=== PATIENT | male | born 1960 | race African-American/Black ===

== ENCOUNTER 2017-02-10 13:33 | Emergency (ER) | payer SELFPAY ==
[~2017-02-10] VITALS: Ht 188 cm; Wt 95.0 kg
[~2017-02-10 13:33] MED LIST: CIPR500T4 PO; CLON-352 PO; LANTUSP SQ; LISI-360 PO; NOVOLOGP2 SQ; ULTR50TA PO; ZOFR8TAB4 SL
[2017-02-10 13:39] VITALS: BP 224/122; PULSE 94; RESP 16; TEMP 98.4; O2SAT 98
--- NOTE | 2017-02-10 14:06 | PD ---
HPI Chief Complaint: Abdominal Pain Time Seen by Provider: 13:50 Travel History International Travel<30 days: No Contact w/Intl Traveler<30days: No Traveled to known affect area: No History of Present Illness HPI This is a 56-year-old male who presents to the emergency department with swelling in his right groin, intermittent, moderate severity been going on for several months, increasing in size. He denies any abdominal pain or vomiting and has had no problems with his bowels. [facility] Past Medical History Diabetes: Yes (type 2 ) Patient Takes Glucophage: No Hypertension: Yes Tetanus Vaccination: > 5 Years Influenza Vaccination: No Social History Alcohol Use: No Tobacco Use: No Substance Use: No Allergies-Medications (Allergen,Severity, Reaction): Coded Allergies: No Known Allergies (Unverified Adverse Reaction, Unknown, 02/10/17) Reported Meds & Prescriptions Reported Meds & Active Scripts Active No Active Prescriptions or Reported Medications Review of Systems Except as stated in HPI: all other systems reviewed are Neg Physical Exam Narrative GENERAL:Well appearing, no acute distress SKIN: Focused skin assessment warm and dry. HEAD: Atraumatic. Normocephalic. EYES: Pupils equal and round. No injection or drainage. ENT: Moist mucous membranes NECK: Trachea midline. CARDIOVASCULAR: Regular rate and rhythm. No murmur appreciated. RESPIRATORY: Clear to auscultation. Breath sounds equal bilaterally. GASTROINTESTINAL: Abdomen soft, non-tender, nondistended. : Large right inguinal hernia easily reducible MUSCULOSKELETAL: No obvious deformities. NEUROLOGICAL: Awake and alert. No obvious cranial nerve deficits. Moving all extremities. PSYCHIATRIC: Appropriate mood and affect; insight and judgment normal. Data Data Last Documented VS Vital Signs Date Time Temp Pulse Resp B/P (MAP) Pulse Ox O2 Delivery O2 Flow Rate FiO2 02/10/17 13:39 98.4 94 16 224/122 156) 98 MDM Medical Decision Making Medical Screen Exam Complete: Yes Emergency Medical Condition: Yes Differential Diagnosis Inguinal hernia, strangulated hernia, incarcerated hernia Narrative Course This is a 56-year-old male who presents to the emergency department with a lump in his groin. On exam he has an inguinal hernia which is easily reducible. He has no evidence of obstruction. I think he can pursue surgical repair as an outpatient. He does have marked hypertension. He has a history of high blood pressure but doesn't take any medications for it. I referred him to the [facility]. Patient will be discharged home. Diagnosis Primary Impression: Right inguinal hernia Referrals: Julius Santos MD Patient Instructions: General Instructions Additional Instructions: If you develop severe or worsening abdominal pain, fever>100.4, persistent vomiting or inability to eat or drink return to the emergency department immediately. Med/Other Pt SpecificInfo: No Change to Meds Scripts No Active Prescriptions or Reported Meds Disposition: 01 DISCHARGE HOME Condition: Stable Peyton Roblero MD Feb 10, 2017 14:06
[2017-02-10 14:34] VITALS: BP 184/126
== END 2017-02-10 14:36 | disposition home or self-care (01) ==
LOC: PHED 13:33
DX: K40.90 Unilateral inguinal hernia, without obstruction or gangrene, not specified as recurrent (principal)
CPT/HCPCS: 99282

== ENCOUNTER 2017-08-06 20:31 | Inpatient (IN) | payer SELFPAY ==
[~2017-08-06] VITALS: Ht 190.5 cm; Wt 97.8 kg
[2017-08-06 20:35] VITALS: BP 129/83; PULSE 95; RESP 18; TEMP 98.2; O2SAT 98
--- NOTE | 2017-08-06 20:49 | PD ---
HPI Chief Complaint: GI Complaint Time Seen by Provider: 20:47 Travel History International Travel<30 days: No Contact w/Intl Traveler<30days: No Traveled to known affect area: No History of Present Illness HPI Patient states that over the past few days he had had been having nausea vomiting and some diarrhea. Those symptoms seem to have improved over the last 3 days however today the patient started to experience a normal bowel movement this morning but by the afternoon the patient started having multiple bloody diarrhea movements associated with crampy abdominal pain, and nausea but without vomiting. Patient denies any alleviating or aggravating factors. Patient denies any associated factors such as fever, rash, chest pain, back pain , flank pain, sore throat/cough/runny nose. The patient states that today throughout the day that it started off with normal stool and then mixed with abnormal bloody stool and eventually just became bloody stool. Visiting from [place] with no local doctor No known drug allergy Past medical history significant for corrective lens use, hypertension, diabetes , left knee orthopedic surgery, on a daily baby aspirin per patient. PFSH Past Medical History Hx Anticoagulant Therapy: Yes (BABY ASA DAILY) Diabetes: Yes (type 2 ) Hypertension: Yes Social History Alcohol Use: No Tobacco Use: No Substance Use: No Allergies-Medications (Allergen,Severity, Reaction): Coded Allergies: No Known Allergies (Verified Adverse Reaction, Unknown, 08/06/17) Reported Meds & Prescriptions Reported Meds & Active Scripts Active No Active Prescriptions or Reported Medications Review of Systems General / Constitutional: No: Fever Eyes: No: Visual changes HENT: No: Headaches Cardiovascular: No: Chest Pain or Discomfort Respiratory: No: Shortness of Breath Gastrointestinal: Positive: Nausea, Vomiting, Hematochezia Genitourinary: No: Dysuria Musculoskeletal: No: Pain Skin: No Rash Neurologic: No: Weakness Psychiatric: No: Depression Endocrine: No: Polydipsia Hematologic/Lymphatic: No: Easy Bruising Physical Exam Narrative GENERAL: SKIN: Warm and dry. HEAD: Atraumatic. Normocephalic. EYES: Pupils equal and round. No scleral icterus. No injection or drainage. ENT: No nasal bleeding or discharge. Mucous membranes pink and moist. NECK: Trachea midline. No JVD. CARDIOVASCULAR: Regular rate and rhythm. RESPIRATORY: No accessory muscle use. Clear to auscultation. Breath sounds equal bilaterally. GASTROINTESTINAL: Abdomen soft, non-tender, nondistended. Patient has reducible large right inguinal hernia. Patient is noted to have bright red blood per rectum. Without any evidence of external hemorrhoids or anal fissure MUSCULOSKELETAL: Extremities without clubbing, cyanosis, or edema. No obvious deformities. NEUROLOGICAL: Awake and alert. No obvious cranial nerve deficits. Motor grossly within normal limits. Five out of 5 muscle strength in the arms and legs. Normal speech. PSYCHIATRIC: Appropriate mood and affect; insight and judgment normal. Data Data Last Documented VS Vital Signs Date Time Temp Pulse Resp B/P (MAP) Pulse Ox O2 Delivery O2 Flow Rate FiO2 08/06/17 21:05 18 08/06/17 20:35 98.2 95 129/83 (98) 98 Orders Orders Complete Blood Count With Diff (08/06/17 21:) Comprehensive Metabolic Panel (08/06/17 21:00) Lipase (08/06/17 21:00) Prothrombin Time / Inr (Pt) (08/06/17:) Act Partial Throm Time (Ptt) (08/06/17:) Urinalysis - C+S If Indicated (08/06/17 21:00) Iv Access Insert/Monitor (08/06/17 21:00) Ecg Monitoring (08/06/17 21:00) Oximetry (08/06/17 21:00) NPO (08/06/17 21:00) Sodium Chlor 0.9% 1000 Ml Inj (Ns 1000 M (08/06/17 21:00) Sodium Chloride 0.9% Flush (Ns Flush) (08/06/17 21:00) Type And Screen (08/06/17 21:00) Enteric Path (Stool) (08/06/17 21:19) C Diff Toxin Pcr (08/06/17 21:19) Giardia Antigen (Stool) (08/06/17 21:19) Stool Ova And Parasite Screen (08/06/17 21:19) Stool Wbc (Leukocytes) (08/06/17 21:19) Promethazine Inj (Phenergan Inj) (08/06/17 21:30) Ct Abd/Pel W/O Iv Contrast (08/06/17 21:00) Labs Laboratory Tests Test 08/06/17 21:25 White Blood Count 6.4 TH/MM3 Red Blood Count 4.25 MIL/MM3 Hemoglobin 11.9 GM/DL Hematocrit 36.0 % Mean Corpuscular Volume 84.7 FL Mean Corpuscular Hemoglobin 28.0 PG Mean Corpuscular Hemoglobin Concent 33.1 % Red Cell Distribution Width 13.7 % Platelet Count 315 TH/MM3 Mean Platelet Volume 7.2 FL Neutrophils (%) (Auto) 70.8 % Lymphocytes (%) (Auto) 18.9 % Monocytes (%) (Auto) 5.7 % Eosinophils (%) (Auto) 2.1 % Basophils (%) (Auto) 2.5 % Neutrophils # (Auto) 4.5 TH/MM3 Lymphocytes # (Auto) 1.2 TH/MM3 Monocytes # (Auto) 0.4 TH/MM3 Eosinophils # (Auto) 0.1 TH/MM3 Basophils # (Auto) 0.2 TH/MM3 CBC Comment DIFF FINAL Differential Comment Prothrombin Time 11.2 SEC Prothromb Time International Ratio 1.1 RATIO Activated Partial Thromboplast Time 25.5 SEC Blood Urea Nitrogen 24 MG/DL Creatinine 2.10 MG/DL Random Glucose 173 MG/DL Total Protein 7.1 GM/DL Albumin 2.4 GM/DL Calcium Level 8.7 MG/DL Alkaline Phosphatase 83 U/L Aspartate Amino Transf (AST/SGOT) 18 U/L Alanine Aminotransferase (ALT/SGPT) 20 U/L Total Bilirubin 0.3 MG/DL Sodium Level 142 MEQ/L Potassium Level 4.0 MEQ/L Chloride Level 106 MEQ/L Carbon Dioxide Level 30.1 MEQ/L Anion Gap 6 MEQ/L Estimat Glomerular Filtration Rate 40 ML/MIN Lipase 96 U/L MDM Medical Decision Making Medical Screen Exam Complete: Yes Emergency Medical Condition: Yes Medical Record Reviewed: Yes Differential Diagnosis Enterocolitis versus enteritis versus diverticulitis versus colitis versus CA Narrative Course CBC shows no leukocytosis, no left shift, normal platelet count, hemoglobin 11.9 and hematocrit of 36 Coagulation profile is within normal limits Chemistry shows renal insufficiency of unknown etiology or chronicity with a creatinine of 2.1 and a BUN of 24 and a GFR of 40. Electrolytes are all within normal limits with the exception of glucose of 173. Normal liver functions and normal pancreatic functions. CT abdomen and pelvis read by radiologist as rectal mass poorly evaluated due to lack of oral and IV contrast. No dilation to suggest obstruction. Colonic diverticulosis, tiny low-density lesions involving the kidneys are poorly characterized and may simply relate to cysts. Largest right inguinal hernia containing loops of small bowel. Diagnosis Primary Impression: Gross GI bleed Additional Impression: Possible rectal mass Admitting Information Admitting Physician Requests: Observation Scripts No Active Prescriptions or Reported Meds Disposition: 01 DISCHARGE HOME Condition: Stable Nitin Samuel MD August 06, 2017 20:49
[2017-08-06] MEDS ORDERED: SODIUM CHLOR 0.9% 1000 ML INJ 1,000 ML IV SCH (21:00)
[2017-08-06] MEDS ORDERED: SODIUM CHLORIDE 0.9% FLUSH 10 ML FLUSH IV FLUSH PRN ×2 (21:00→23:15)
[2017-08-06 21:05] VITALS: BP 136/86; PULSE 94; RESP 18; O2SAT 96
[2017-08-06] MEDS ORDERED: PROMETHAZINE INJ 25 MG/ML VIAL IM ONE (21:30)
[2017-08-06 21:35] LABS: AUTOMATED NEUTROPHIL # 4.5 TH/MM3 (1.8-7.7); BASOPHIL # 0.2 TH/MM3 (0-0.2); BASOPHIL % 2.5 % (0.0-2.0); EOSINOPHIL # 0.1 TH/MM3 (0-0.4); EOSINOPHIL % 2.1 % (0.0-4.0); HEMOGLOBIN 11.9 GM/DL (13.0-17.0); LYMPH % 18.9 % (9.0-44.0); LYMPHOCYTE # 1.2 TH/MM3 (1.0-4.8); MEAN CELL VOLUME 84.7 FL (80.0-100.0); MEAN CORPUSCULAR HGB CONC 33.1 % (32.0-36.0); MEAN PLATELET VOLUME 7.2 FL (7.0-11.0); MONO % 5.7 % (0.0-8.0); MONOCYTE # 0.4 TH/MM3 (0-0.9); NEUT % 70.8 % (16.0-70.0); PLATELET COUNT 315 TH/MM3 (150-450); RED BLOOD COUNT 4.25 MIL/MM3 (4.50-5.90); RED CELL DISTRIBUTION WIDTH 13.7 % (11.6-17.2); WHITE BLOOD COUNT 6.4 TH/MM3 (4.0-11.0)
[2017-08-06 21:45] LABS: CHLORIDE 106 MEQ/L (98-107); SODIUM (NA) 142 MEQ/L (136-145)
[2017-08-06 21:48] LABS: CALCIUM 8.7 MG/DL (8.5-10.1)
[2017-08-06 21:49] LABS: ALBUMIN 2.4 GM/DL (3.4-5.0); BICARBONATE 30.1 MEQ/L (21.0-32.0); BLOOD UREA NITROGEN 24 MG/DL (7-18); GLUCOSE,RANDOM 173 MG/DL (74-106)
[2017-08-06 21:51] LABS: ALT (GPT) 20 U/L (12-78); AST (GOT) 18 U/L (15-37)
[2017-08-06 21:52] LABS: GLOMERULAR FILTRATION RATE 40 ML/MIN (>89)
[2017-08-06 21:53] LABS: TOTAL BILIRUBIN ADULT 0.3 MG/DL (0.2-1.0); TOTAL PROTEIN 7.1 GM/DL (6.4-8.2)
[2017-08-06 21:54] LABS: ALKALINE PHOSPHATASE 83 U/L (45-117)
[2017-08-06 22:05] VITALS: BP 116/74; PULSE 93; RESP 18; O2SAT 95
[2017-08-06 22:15] LABS: INTERNATIONAL NORMALIZED RATIO 1.1 RATIO; PROTHROMBIN TIME - PATIENT 11.2 SEC (9.8-11.6)
--- NOTE | 2017-08-06 22:58 | RADRPT ---
EXAM DATE/TIME: 08/06/2017 22:30 [place] COMPARISON: No previous studies available for comparison. INDICATIONS : Abdomen pain with nausea, vomiting and rectal bleeding. ORAL CONTRAST: No oral contrast ingested. RADIATION DOSE: 16.62 CTDIvol (mGy) MEDICAL HISTORY : Hypertension. Diabetes mellitus type 2. SURGICAL HISTORY : None. ENCOUNTER: Initial ACUITY: 1 week PAIN SCALE: 5/10 LOCATION: Bilateral abdomen TECHNIQUE: Volumetric scanning of the abdomen and pelvis was performed. Using automated exposure control and ad justment of the mA and/or kV according to patient size, radiation dose was kept as low as reasonably achievable to obtain optimal diagnostic quality images. DICOM format image data is available electro nically for review and comparison. FINDINGS: LOWER LUNGS: The visualized lower lungs are clear. LIVER: Homogeneous density without lesion. Focal fatty infiltration adjacent to the falciform ligament. Ther e is no dilation of the biliary tree. No calcified gallstones. SPLEEN: Normal size without lesion. PANCREAS: Within normal limits. KIDNEYS: Normal in size and shape. Tiny low density cortical lesions bilaterally. There is no mass, stone, or hydronephrosis. ADRENAL GLANDS: Within normal limits. VASCULAR: There is no aortic aneurysm. BOWEL/MESENTERY: Is suspected rectal mass. This is poorly evaluated without oral and IV contrast. The generators wall thickening of the rectum. No dilatation of the more proximal bowel to suggest an obstructing componen t. Scattered colonic diverticuli. ABDOMINAL WALL: Within normal limits. RETROPERITONEUM: There is no lymphadenopathy. BLADDER: No wall thickening or mass. REPRODUCTIVE: Within normal limits. INGUINAL: There is a right angle hernia that contains multiple loops of small bowel. No stranding to suggest an inflammatory process. MUSCULOSKELETAL: A. scoliot and degenerative spine. CONCLUSION: 1. Rectal mass poorly evaluated due to the lack of oral and IV contrast. No dilatation to suggest obs truction. 2. Colonic diverticulosis. 3. Tiny low density lesions involving the kidneys which are poorly characterized. These may simply re late to cysts. 4. Large right inguinal hernia containing loops of small bowel. Lito Fierro Jr., MD on August 06, 2017 at 22:51 Board Certified Radiologist. This report was verified electronically.
[2017-08-06 23:07] VITALS: BP 134/85; PULSE 92; RESP 18; O2SAT 97
[2017-08-06] MEDS ORDERED: METOCLOPRAMIDE HCL 10 MG/2 ML VIAL IV PUSH PRN (23:15)
[2017-08-06] MEDS ORDERED: BISACODYL 10 MG SUPP RECTAL PRN (23:15)
[2017-08-06] MEDS ORDERED: MAGNESIUM HYDROXIDE SUSP 30 ML CUP PO PRN (23:15)
[2017-08-06] MEDS ORDERED: ACETAMINOPHEN 325 MG TAB PO PRN (23:15)
[2017-08-06] MEDS ORDERED: ACETAMINOPHEN/HYDROcodone 325 MG/5 MG TAB PO PRN (23:15)
[2017-08-06] MEDS ORDERED: LACTULOSE SYRUP 20 GM/30 ML CUP PO PRN (23:15)
[2017-08-06] MEDS ORDERED: MORPHINE SULFATE 4 MG/ML INJ IV PUSH PRN (23:15)
[2017-08-06] MEDS ORDERED: SENNOSIDES 8.6 MG TAB PO PRN (23:15)
[2017-08-07] VITALS (13 sets, daily range): BP systolic 100–181; BP diastolic 71–97; PULSE 88–100; RESP 15–20; TEMP 97–98; O2SAT 95–98
[2017-08-07] MEDS: SODIUM CHLOR 0.9% 1000 ML INJ 1,000 ML IV SCH ×3 (00:25→20:38)
[2017-08-07 06:29] LABS: AUTOMATED NEUTROPHIL # 4.8 TH/MM3 (1.8-7.7); BASOPHIL # 0.2 TH/MM3 (0-0.2); EOSINOPHIL % 0.2 % (0.0-4.0); HEMATOCRIT 30.4 % (39.0-51.0); LYMPH % 17.1 % (9.0-44.0); LYMPHOCYTE # 1.1 TH/MM3 (1.0-4.8); MEAN CELL VOLUME 85.2 FL (80.0-100.0); MEAN CORPUSCULAR HEMOGLOBIN 26.7 PG (27.0-34.0); MEAN CORPUSCULAR HGB CONC 31.4 % (32.0-36.0); MEAN PLATELET VOLUME 6.7 FL (7.0-11.0); MONO % 4.8 % (0.0-8.0); MONOCYTE # 0.3 TH/MM3 (0-0.9); NEUT % 74.9 % (16.0-70.0); PLATELET COUNT 266 TH/MM3 (150-450); RED BLOOD COUNT 3.58 MIL/MM3 (4.50-5.90); RED CELL DISTRIBUTION WIDTH 13.5 % (11.6-17.2); WHITE BLOOD COUNT 6.4 TH/MM3 (4.0-11.0)
[2017-08-07 06:32] LABS: HEMOGLOBIN 9.6 GM/DL (13.0-17.0)
[2017-08-07 06:39] LABS: CHLORIDE 110 MEQ/L (98-107); SODIUM (NA) 144 MEQ/L (136-145)
[2017-08-07 06:53] LABS: ALBUMIN 2.1 GM/DL (3.4-5.0); ALKALINE PHOSPHATASE 70 U/L (45-117); ALT (GPT) 15 U/L (12-78); AST (GOT) 11 U/L (15-37); BICARBONATE 26.9 MEQ/L (21.0-32.0); BLOOD UREA NITROGEN 28 MG/DL (7-18); CALCIUM 7.8 MG/DL (8.5-10.1); GLOMERULAR FILTRATION RATE 44 ML/MIN (>89); GLUCOSE,RANDOM 161 MG/DL (74-106); TOTAL BILIRUBIN ADULT 0.3 MG/DL (0.2-1.0)
[2017-08-07] MEDS ORDERED: PROCHLORPERAZINE INJ 10 MG/2 ML VIAL IV PUSH PRN (08:00)
[2017-08-07] MEDS ORDERED: GLUCAGON 1 MG/ML VIAL OTHER PRN (08:15)
[2017-08-07] MEDS ORDERED: DEXTROSE 50% IN WATER 50 ML VIAL(D50) IV PUSH PRN (08:15)
--- NOTE | 2017-08-07 08:28 | HHI.HP ---
[facility] Service [facility] Primary Care Physician Unknown Admission Diagnosis GI BLEED, POSSIBLE RECTAL MASS Diagnoses: (1) Intractable nausea and vomiting Diagnosis: Principal (2) Abdominal pain Diagnosis: Principal (3) Lower GI bleed Diagnosis: Principal (4) Acute blood loss anemia Diagnosis: Principal (5) Rectal mass Diagnosis: Principal (6) Acute renal failure Diagnosis: Principal (7) Dehydration Diagnosis: Principal Chief Complaint: Rectal bleeding Travel History International Travel<30 Days: No Contact w/Intl Traveler <30 Da: No Traveled to Known Affected Are: No History of Present Illness 57-year-old male with known history of hypertension, diabetes who presented the hospital because of bloody stool. Patient indicates over the last 2 weeks he has had intractable nausea, vomiting not able to eat or drink much. He states that yesterday when he had a bowel movement was bloody diarrhea, he states he never had this before so he came to emergency department because of that symptom. Patient did have workup which did indicate significant dehydration, acute renal failure, acute blood loss anemia from reviewing previous records. Patient is still with intractable nausea vomiting which he has been given IV medication for control. Patient states that he has been experiencing lower abdominal pain without any radiation. CT scan was performed which did indicate some small bowel loops in a large inguinal hernia. As well as rectal mass that was poorly evaluated because of lack of contrast. Currently the patient is lying in bed with mild pain. He is still having nausea and vomiting. Upon reviewing medical records patient has lost 5 g hemoglobin since 2013. Patient be admitted with GI consultation. Review of Systems Constitutional: COMPLAINS OF: Change in appetite Gastrointestinal: COMPLAINS OF: Abdominal pain, Bloody stools, Diarrhea, Nausea , Vomiting Except as stated in HPI: all other systems reviewed are Neg Past Family Social History Past Medical History Hypertension Diabetes Past Surgical History Left knee surgery Reported Medications Patient does not recall all of his medications Lantus 20 units daily Blood pressure medication Requested nursing staff to obtain accurate medication list from [facility] Allergies: Coded Allergies: No Known Allergies (Verified Adverse Reaction, Unknown, 08/06/17) Family History Family history was reviewed and significant for hypertension, diabetes Social History Patient denies any tobacco, alcohol or illicit drug Physical Exam Vital Signs Vital Signs Date Time Temp Pulse Resp B/P (MAP) Pulse Ox O2 Delivery O2 Flow Rate FiO2 08/07/17 07:40 08/07/17 07:06 100 16 149/86 (107) 97 Room Air 08/07/17 06:00 96 16 132/74 (93) 96 Room Air 08/07/17 05:00 100 16 151/88 (109) 97 Room Air 08/07/17 04:00 94 16 133/90 (104) 97 Room Air 08/07/17 03:00 94 16 154/94 (114) 96 Room Air 08/07/17 02:00 92 16 127/85 (99) 97 Room Air 08/07/17 01:00 90 16 148/90 (109) 95 Room Air 08/07/17 00:10 92 16 100/71 (81) 96 Room Air 08/06/17 23:07 92 18 134/85 (101) 97 Room Air 08/06/17 22:05 93 18 116/74 (88) 95 Room Air 08/06/17 21:05 18 08/06/17 21:05 18 96 Room Air 08/06/17 21:05 94 18 136/86 (103) 96 Room Air 08/06/17 20:35 98.2 95 18 129/83 (98) 98 Physical Exam GENERAL: Well-developed, well-nourished, in no acute distress. alert and orientated HEENT: Head is normocephalic without any lesions or masses noted. Facial features are symmetric. Eyes: Pupils equal round reactive to light. Extraocular muscles are intact. Conjunctivae were clear. Oropharyngeal: Pharynx without any erythema edema. Tongue is midline without deviation. Buccal mucosa is moist without any masses or lesions NECK: Supple without any masses. Trachea midline no deviation. No JVD, no bruits are appreciated CARDIAC: Regular rhythm, regular rate. S1/S2 are heard. No murmurs gallops or rubs. LUNGS: Clear to auscultation bilaterally. No wheeze, rhonchi or rales. No use of accessory muscles on inspiration or expiration. ABDOMEN: Soft, nontender. Nondistended. Bowel sounds heard in all 4 quadrants. No organomegaly or masses. Negative rebound, negative guarding EXTREMITIES: No edema, pulses are equal bilaterally. No cyanosis or clubbing NEUROLOGY: Mood and affect appear appropriate. Cranial nerves II through XII grossly intact. Muscle strength 5/5 in upper and lower extremities bilaterally. Deep tendon reflexes are 2+ in upper and lower extremities bilaterally. Laboratory Laboratory Tests Test 08/06/17 21:25 08/07/17 06:15 White Blood Count 6.4 6.4 Red Blood Count 4.25 3.58 Hemoglobin 11.9 9.6 Hematocrit 36.0 30.4 Mean Corpuscular Volume 84.7 85.2 Mean Corpuscular Hemoglobin 28.0 26.7 Mean Corpuscular Hemoglobin Concent 33.1 31.4 Red Cell Distribution Width 13.7 13.5 Platelet Count 315 266 Mean Platelet Volume 7.2 6.7 Neutrophils (%) (Auto) 70.8 74.9 Lymphocytes (%) (Auto) 18.9 17.1 Monocytes (%) (Auto) 5.7 4.8 Eosinophils (%) (Auto) 2.1 0.2 Basophils (%) (Auto) 2.5 3.0 Neutrophils # (Auto) 4.5 4.8 Lymphocytes # (Auto) 1.2 1.1 Monocytes # (Auto) 0.4 0.3 Eosinophils # (Auto) 0.1 0.0 Basophils # (Auto) 0.2 0.2 CBC Comment DIFF FINAL DIFF FINAL Differential Comment Prothrombin Time 11.2 Prothromb Time International Ratio 1.1 Activated Partial Thromboplast Time 25.5 Stool C. difficile Toxin (PCR) NEGATIVE Stl C. difficile Toxin Epiderm 027 PRESUMPTIVE NEGATIVE Blood Urea Nitrogen 24 28 Creatinine 2.10 1.90 Random Glucose 173 161 Total Protein 7.1 6.0 Albumin 2.4 2.1 Calcium Level 8.7 7.8 Alkaline Phosphatase 83 70 Aspartate Amino Transf (AST/SGOT) 18 11 Alanine Aminotransferase (ALT/SGPT) 20 15 Total Bilirubin 0.3 0.3 Sodium Level 142 144 Potassium Level 4.0 3.9 Chloride Level 106 110 Carbon Dioxide Level 30.1 26.9 Anion Gap 6 7 Estimat Glomerular Filtration Rate 40 44 Lipase 96 Date/Time Source Procedure Growth Status 08/06/17 21:25 Stool Stool Cryptosporidium Exam Pending Received 08/06/17 21:25 Stool Stool Stool Pus (KATIA) Pending Received 08/06/17 21:25 Stool Stool Giardia Antigen (KATIA) Pending Received Result Diagram: 08/07/17 0615 08/07/17 0615 Imaging Last Impressions Abdomen/Pelvis CT 08/06/17 2100 Signed Impressions: Service Date/Time: Sunday, August 06, 2017 22:30 - CONCLUSION: 1. Rectal mass poorly evaluated due to the lack of oral and IV contrast. No dilatation to suggest obstruction. 2. Colonic diverticulosis. 3. Tiny low density lesions involving the kidneys which are poorly characterized. These may simply relate to cysts. 4. Large right inguinal hernia containing loops of small bowel. MD Parker Damico Jr. VTE Risk Assessment Capjim VTE Risk Assessment: Mod/High Risk (score >= 2) VTE Pharm Contraindication: Active bleeding Caprini Risk Assessment Model Point Value = 1 Point Value = 2 Point Value = 3 Point Value = 5 Age 41-60 Minor surgery BMI > 25 kg/m2 Swollen legs Varicose veins or History of unexplained or recurrent spontaneous Oral contraceptives or hormone replacement Sepsis (< 1 month) Serious lung disease, including pneumonia (< 1 month) Abnormal pulmonary function Acute myocardial infarction Congestive heart failure (< 1 month) History of inflammatory bowel disease Medical patient at bed rest Age 61-74 Arthroscopic surgery Major open surgery (> 45 min) Laparoscopic surgery (> 45 min) Malignancy Confined to bed (> 72 hours) Immobilizing plaster cast Central venous access Age >= 75 History of VTE Family history of VTE Factor V Leiden Prothrombin 25176M Lupus anticoagulant Anticardiolipin antibodies Elevated serum homocysteine Heparin-induced thrombocytopenia Other congenital or acquired thrombophilia Stroke (< 1 month) Elective arthroplasty Hip, pelvis, or leg fracture Acute spinal cord injury (< 1 month) Prophylaxis Regimen Total Risk Factor Score Risk Level Prophylaxis Regimen 0-1 Low Early ambulation 2 Moderate Order ONE of the following: *Sequential Compression Device (SCD) *Heparin 5000 units SQ BID 3-4 Higher Order ONE of the following medications: *Heparin 5000 units SQ TID *Enoxaparin/Lovenox 40 mg SQ daily (WT < 150 kg, CrCl > 30 mL/min) *Enoxaparin/Lovenox 30 mg SQ daily (WT < 150 kg, CrCl > 10-29 mL/min) *Enoxaparin/Lovenox 30 mg SQ BID (WT < 150 kg, CrCl > 30 mL/min) AND/OR *Sequential Compression Device (SCD) 5 or more Highest Order ONE of the following medications: *Heparin 5000 units SQ TID (Preferred with Epidurals) *Enoxaparin/Lovenox 40 mg SQ daily (WT < 150 kg, CrCl > 30 mL/min) *Enoxaparin/Lovenox 30 mg SQ daily (WT < 150 kg, CrCl > 10-29 mL/min) *Enoxaparin/Lovenox 30 mg SQ BID (WT < 150 kg, CrCl > 30 mL/min) AND *Sequential Compression Device (SCD) Assessment and Plan Assessment and Plan Lower GI bleed with bright red blood per rectum, rectal mass seen on CT, acute blood loss anemia -CT scan does show rectal mass that is poorly visualized due to lack of contrast -Upon review of records it appears patient has lost approximately 5 g of hemoglobin since 2013, continue to monitor hemoglobin hematocrit, transfuse if hemoglobin below 8.0 -Start Protonix 40 mg IV daily -GI consulted for recommendations, might need emergent colonoscopy if continued bleeding, will definitely need colonoscopy for evaluation of rectal mass Nausea, vomiting, diarrhea -Continue IV fluids -Continue antiemetics -Clear liquid diet, advance per GI recommendations -Stool for C. difficile was negative -Awaiting further stool studies Acute renal failure with dehydration -Secondary to above -Continue IV fluids -Monitor renal function Diabetes -Accu-Cheks with sliding scale insulin -Start diabetic diet when patient is able to eat Hypertension -Awaiting medication reconciliation from patient's pharmacy -Clonidine as needed DVT prevention -Sequential compression devices, avoid chemical prophylaxis secondary to active GI bleed Physician Certification 2 Midnight Certification Type: Admission for Inpatient Services Order for Inpatient Services The services are ordered in accordance with Medicare regulations or non- Medicare payer requirements, as applicable. In the case of services not specified as inpatient-only, they are appropriately provided as inpatient services in accordance with the 2-midnight benchmark. Estimated LOS (days): 3 days is the estimated time the patient will need to remain in the hospital, assuming treatment plan goals are met and no additional complications. Post-Hospital Plan: Not yet determined Elliot Ortez August 07, 2017 08:28
[2017-08-07] MEDS: cloNIDine HCL 0.1 MG TAB PO PRN (08:59)
[2017-08-07] MEDS: PANTOPRAZOLE SODIUM 40 MG VIAL IV PUSH SCH (08:59)
[2017-08-07] MEDS: DOCUSATE SODIUM 50 MG/SENNA 8.6 MG TAB PO SCH ×2 (08:59→21:00)
[2017-08-07] MEDS: SODIUM CHLORIDE 0.9% FLUSH 10 ML FLUSH IV FLUSH SCH ×2 (09:00→22:52)
[2017-08-07 12:12] LABS: HEMATOCRIT 27.1 % (39.0-51.0); HEMOGLOBIN 8.7 GM/DL (13.0-17.0)
[2017-08-07] MEDS: INSULIN ASPART SUPPLEMENTAL SCALE SQ SCH ×3 (12:34→22:52)
--- NOTE | 2017-08-07 13:53 | PD.CONS ---
HPI History of Present Illness This is a 57 year old, who was admitted to the hospital with history of rectal bleeding which started 1 day prior to admission. This was large in amount bright red in color. He also complained of abdominal pain nausea vomiting. Pain was moderately severe colicky located in the lower abdomen. He denies any history of heartburn dysphagia hematemesis melena jaundice ascites edema. He reports anorexia and weight loss over the last several months. PFSH Past Medical History Hypertension Diabetes Past Surgical History Left knee surgery Coded Allergies: No Known Allergies (Verified Adverse Reaction, Unknown, 08/06/17) Medications As per the nursing notes Family History Family history was reviewed and significant for hypertension, diabetes No history of colorectal cancer or polyps in the family Social History Patient denies any tobacco, alcohol or illicit drug Review of Systems Constitutional: COMPLAINS OF: Weight loss Gastrointestinal: COMPLAINS OF: Bloody stools, Nausea, Vomiting, Anorexia GI Exam Vitals I&O Vital Signs Date Time Temp Pulse Resp B/P (MAP) Pulse Ox O2 Delivery O2 Flow Rate FiO2 08/07/17 08:00 97.0 100 15 170/97 (121) 98 08/07/17 07:40 08/07/17 07:06 100 16 149/86 (107) 97 Room Air 08/07/17 06:00 96 16 132/74 (93) 96 Room Air 08/07/17 05:00 100 16 151/88 (109) 97 Room Air 08/07/17 04:00 94 16 133/90 (104) 97 Room Air 08/07/17 03:00 94 16 154/94 (114) 96 Room Air 08/07/17 02:00 92 16 127/85 (99) 97 Room Air 08/07/17 01:00 90 16 148/90 (109) 95 Room Air 08/07/17 00:10 92 16 100/71 (81) 96 Room Air 08/06/17 23:07 92 18 134/85 (101) 97 Room Air 08/06/17 22:05 93 18 116/74 (88) 95 Room Air 08/06/17 21:05 18 08/06/17 21:05 18 96 Room Air 08/06/17 21:05 94 18 136/86 (103) 96 Room Air 08/06/17 20:35 98.2 95 18 129/83 (98) 98 I/O 08/06/17 08/06/17 08/06/17 08/07/17 08/07/17 08/07/17 07:00 15:00 23:00 07:00 15:00 23:00 Intake Total 1000 ml Balance 1000 ml Intake IV Total 1000 ml # Bowel Movements [address] scan of the abdomen and pelvis done after admission showed presence of possible rectal mass, colon diverticulosis and inguinal hernia with bowel loops. No evidence of bowel obstruction. Laboratory Test 08/06/17 21:25 08/07/17 06:15 08/07/17 08:21 08/07/17 11:30 White Blood Count 6.4 TH/MM3 6.4 TH/MM3 Red Blood Count 4.25 MIL/MM3 3.58 MIL/MM3 Hemoglobin 11.9 GM/DL 9.6 GM/DL 8.7 GM/DL Hematocrit 36.0 % 30.4 % 27.1 % Mean Corpuscular Volume 84.7 FL 85.2 FL Mean Corpuscular Hemoglobin 28.0 PG 26.7 PG Mean Corpuscular Hemoglobin Concent 33.1 % 31.4 % Red Cell Distribution Width 13.7 % 13.5 % Platelet Count 315 TH/MM3 266 TH/MM3 Mean Platelet Volume 7.2 FL 6.7 FL Neutrophils (%) (Auto) 70.8 % 74.9 % Lymphocytes (%) (Auto) 18.9 % 17.1 % Monocytes (%) (Auto) 5.7 % 4.8 % Eosinophils (%) (Auto) 2.1 % 0.2 % Basophils (%) (Auto) 2.5 % 3.0 % Neutrophils # (Auto) 4.5 TH/MM3 4.8 TH/MM3 Lymphocytes # (Auto) 1.2 TH/MM3 1.1 TH/MM3 Monocytes # (Auto) 0.4 TH/MM3 0.3 TH/MM3 Eosinophils # (Auto) 0.1 TH/MM3 0.0 TH/MM3 Basophils # (Auto) 0.2 TH/MM3 0.2 TH/MM3 CBC Comment DIFF FINAL DIFF FINAL Differential Comment Prothrombin Time 11.2 SEC Prothromb Time International Ratio 1.1 RATIO Activated Partial Thromboplast Time 25.5 SEC Stool C. difficile Toxin (PCR) NEGATIVE Stl C. difficile Toxin Epiderm 027 PRESUMPTIVE NEGATIVE Blood Urea Nitrogen 24 MG/DL 28 MG/DL Creatinine 2.10 MG/DL 1.90 MG/DL Random Glucose 173 MG/DL 161 MG/DL Total Protein 7.1 GM/DL 6.0 GM/DL Albumin 2.4 GM/DL 2.1 GM/DL Calcium Level 8.7 MG/DL 7.8 MG/DL Alkaline Phosphatase 83 U/L 70 U/L Aspartate Amino Transf (AST/SGOT) 18 U/L 11 U/L Alanine Aminotransferase (ALT/SGPT) 20 U/L 15 U/L Total Bilirubin 0.3 MG/DL 0.3 MG/DL Sodium Level 142 MEQ/L 144 MEQ/L Potassium Level 4.0 MEQ/L 3.9 MEQ/L Chloride Level 106 MEQ/L 110 MEQ/L Carbon Dioxide Level 30.1 MEQ/L 26.9 MEQ/L Anion Gap 6 MEQ/L 7 MEQ/L Estimat Glomerular Filtration Rate 40 ML/MIN 44 ML/MIN Lipase 96 U/L Lactic Acid Level 1.1 mmol/L Date/Time Source Procedure Growth Status 08/06/17 21:25 Stool Stool Cryptosporidium Exam Pending Resulted 08/06/17 21:25 Stool Stool Stool Pus (KATIA) - Final FEW WBC'S Resulted 08/06/17 21:25 Stool Stool Giardia Antigen (KATIA) Pending Resulted Physical Examination HEENT: Pupils round and reactive to light; normocephalic; atraumatic; no jaundice. Throat is clear. Pallor present NECK: Neck is supple, no JVD, no lymphadenopathy. CHEST: Chest is clear to auscultation and percussion. CARDIAC: Regular rate and rhythm with ejection systolic murmur at the left sternal border grade 2/ 6 ABDOMEN: Soft, nondistended, nontender; no hepatosplenomegaly; bowel sounds are present in all four quadrants. EXTREMITIES: No clubbing, cyanosis, or edema. SKIN: Normal; no rash; no jaundice. 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 Assessment and Plan Assessment: (1) Chronic renal failure ICD Codes: N18.9 - Chronic kidney disease, unspecified (2) HTN (hypertension) ICD Codes: I10 - HTN (hypertension) Status: Acute (3) DM (diabetes mellitus), secondary uncontrolled ICD Codes: E08.9 - DM (diabetes mellitus), secondary uncontrolled Status: Acute (4) Lower GI bleed ICD Codes: K92.2 - Gastrointestinal hemorrhage, unspecified (5) Rectal mass ICD Codes: K62.9 - Disease of anus and rectum, unspecified (6) Acute blood loss anemia ICD Codes: D62 - Acute posthemorrhagic anemia (7) Intractable nausea and vomiting ICD Codes: R11.2 - Nausea with vomiting, unspecified Plan Patient likely has rectal bleeding related to rectal cancer. Diverticular bleeding could be the other possible cause. 1. Monitor serial hemoglobin and hematocrit levels 2. Supportive treatment including IV fluids and packed red cells if hemoglobin falls below 8 3. IV Protonix 40 mg twice daily 4. Plan to do EGD and colonoscopy on Wednesday. Keven Arzate MD August 07, 2017 13:53
[2017-08-07] MEDS ORDERED: GABA800T PO (17:38)
[2017-08-07] MEDS ORDERED: LOSA50TA PO (17:39)
[2017-08-07] MEDS ORDERED: LANTINJ SQ (17:41)
[2017-08-07 18:31] LABS: HEMATOCRIT 27.5 % (39.0-51.0); HEMOGLOBIN 8.8 GM/DL (13.0-17.0)
[2017-08-08] VITALS (7 sets, daily range): BP systolic 130–190; BP diastolic 72–112; PULSE 81–86; RESP 16–20; TEMP 96.4–97.6; O2SAT 97–100
[2017-08-08 00:12] LABS: BILIRUBIN, URINE NEG (NEG); BLOOD, URINE TRACE (NEG); GLUCOSE,URINE NEG (NEG); KETONE, URINE NEG (NEG); NITRITE,URINE NEG (NEG); PH, URINE 5.5 (5.0-8.5); URINE COLOR YELLOW (YELLW/STRAW); URINE LEUKOCYTE ESTERASE NEG (NEG)
[2017-08-08 00:14] LABS: HEMATOCRIT 23.8 % (39.0-51.0); HEMOGLOBIN 8.2 GM/DL (13.0-17.0)
[2017-08-08 00:34] LABS: SQUAMOUS EPITHELIAL CELL URINE 0-5 /hpf (0-5); WBC, URINE 0-2 /hpf (0-5)
[2017-08-08] MEDS: SODIUM CHLOR 0.9% 1000 ML INJ 1,000 ML IV SCH ×2 (05:20→14:10)
[2017-08-08] MEDS: cloNIDine HCL 0.1 MG TAB PO PRN ×2 (05:38→21:23)
[2017-08-08 07:39] LABS: AUTOMATED NEUTROPHIL # 2.7 TH/MM3 (1.8-7.7); BASOPHIL % 0.9 % (0.0-2.0); EOSINOPHIL # 0.2 TH/MM3 (0-0.4); EOSINOPHIL % 4.1 % (0.0-4.0); HEMATOCRIT 26.1 % (39.0-51.0); HEMOGLOBIN 8.8 GM/DL (13.0-17.0); LYMPH % 30.5 % (9.0-44.0); LYMPHOCYTE # 1.5 TH/MM3 (1.0-4.8); MEAN CELL VOLUME 84.9 FL (80.0-100.0); MEAN CORPUSCULAR HEMOGLOBIN 28.6 PG (27.0-34.0); MEAN CORPUSCULAR HGB CONC 33.7 % (32.0-36.0); MEAN PLATELET VOLUME 7.2 FL (7.0-11.0); MONO % 8.4 % (0.0-8.0); MONOCYTE # 0.4 TH/MM3 (0-0.9); NEUT % 56.1 % (16.0-70.0); PLATELET COUNT 237 TH/MM3 (150-450); RED BLOOD COUNT 3.07 MIL/MM3 (4.50-5.90); WHITE BLOOD COUNT 4.8 TH/MM3 (4.0-11.0)
[2017-08-08 07:54] LABS: BICARBONATE 28.6 MEQ/L (21.0-32.0); MAGNESIUM 1.6 MG/DL (1.5-2.5)
[2017-08-08 07:58] LABS: CREATININE 1.4 MG/DL (0.60-1.30)
[2017-08-08] MEDS: INSULIN ASPART SUPPLEMENTAL SCALE SQ SCH ×4 (09:00→20:45)
[2017-08-08] MEDS: GABAPENTIN 400 MG CAP PO SCH ×3 (09:00→17:07)
[2017-08-08] MEDS: SODIUM CHLORIDE 0.9% FLUSH 10 ML FLUSH IV FLUSH SCH ×2 (09:00→20:07)
[2017-08-08] MEDS: LOSARTAN 50 MG TAB PO SCH (09:00)
[2017-08-08] MEDS: PANTOPRAZOLE SODIUM 40 MG VIAL IV PUSH SCH (09:00)
[2017-08-08] MEDS: DOCUSATE SODIUM 50 MG/SENNA 8.6 MG TAB PO SCH ×2 (09:00→20:08)
--- NOTE | 2017-08-08 09:27 | HHI.PR ---
Subjective Remarks Patient seen and examined today for follow-up on rectal mass, GI bleed. Patient states that his last bowel movement still has some blood in it. Otherwise he is doing well. He is tolerating liquid diet without any nausea or vomiting. Patient denies any other complaints. Patient blood pressure moderately elevated. Will need to adjust medications. Patient remains afebrile. Objective Vitals Vital Signs Date Time Temp Pulse Resp B/P (MAP) Pulse Ox O2 Delivery O2 Flow Rate FiO2 08/08/17 09:17 96.4 86 18 190/112 (138) 99 08/08/17 04:00 96.6 81 20 181/107 (131) 99 08/08/17 00:00 96.8 81 20 130/72 (91) 97 08/07/17 21:00 88 08/07/17 20:00 97.3 88 20 181/95 (123) 97 08/07/17 16:00 98.0 92 16 138/86 (103) 98 08/07/17 12:00 97.1 99 16 163/93 (116) 97 I/O 08/07/17 08/07/17 08/07/17 08/08/17 08/08/17 08/08/17 07:00 15:00 23:00 07:00 15:00 23:00 Intake Total 480 ml 120 ml Output Total 200 ml Balance 280 ml 120 ml Intake Oral 480 ml 120 ml Output Urine Total 200 ml # Voids 3 2 Result Diagram: 08/08/17 0703 08/08/17 0703 Objective Remarks GENERAL: Well-developed, well-nourished, in no acute distress. alert and orientated HEENT: Head is normocephalic without any lesions or masses noted. Facial features are symmetric. Eyes: Extraocular muscles are intact. Conjunctivae were clear. NECK: Supple without any masses. Trachea midline no deviation. No JVD, CARDIAC: Regular rhythm, regular rate. S1/S2 are heard. No murmurs gallops or rubs. LUNGS: Clear to auscultation bilaterally. No wheeze, rhonchi or rales. No use of accessory muscles on inspiration or expiration. ABDOMEN: Soft, nontender. Nondistended. Bowel sounds heard in all 4 quadrants. No organomegaly or masses. Negative rebound, negative guarding EXTREMITIES: No edema, pulses are equal bilaterally. No cyanosis or clubbing NEUROLOGY: Mood and affect appear appropriate. Cranial nerves II through XII grossly intact. Moving all extremities, speech is clear Urinary Catheter: No Vascular Central Line Catheter: No A/P Assessment and Plan Lower GI bleed with bright red blood per rectum, rectal mass seen on CT, acute blood loss anemia -CT scan does show rectal mass that is poorly visualized due to lack of contrast -Upon review of records it appears patient has lost approximately 5 g of hemoglobin since 2014, continue to monitor hemoglobin hematocrit, transfuse if hemoglobin below 8.0 -Continue Protonix 40 mg IV daily -GI consulted for recommendations, -Planned for EGD, colonoscopy tomorrow morning Nausea, vomiting, diarrhea -Continue IV fluids -Continue antiemetics -Clear liquid diet, advance per GI recommendations -Stool for C. difficile was negative -Stool studies do not indicate any enteric pathogen Acute renal failure with dehydration, continues to improve -Secondary to above -Continue IV fluids -Monitor renal function Diabetes -Accu-Cheks with sliding scale insulin -Start diabetic diet when patient is able to eat Hypertension -Cozaar 50 mg daily -Add Norvasc 5 mg daily -Clonidine as needed DVT prevention -Sequential compression devices, avoid chemical prophylaxis secondary to active GI bleed Discharge Planning Possible discharge planning after EGD/colonoscopy tomorrow when cleared by GI. Elliot Ortez August 08, 2017 09:27
[2017-08-08] MEDS: amLODIPine BESYLATE 5 MG TAB PO SCH (10:47)
[2017-08-08] MEDS ORDERED: PEG (High)/E-LYTE SOLN 4000 ML BTL PO ONE ×2 (16:00→18:00)
--- NOTE | 2017-08-08 17:43 | HHI.GIFU ---
GI Follow-up Note Consult Follow-up Subjective: Patient laying in bed comfortably, no new complaints Objective: PHYSICAL EXAMINATION: Vitals signs stable No fever HEENT: Pupils round and reactive to light; normocephalic; atraumatic; no jaundice. Throat is clear. NECK: Neck is supple, no JVD, no lymphadenopathy. CHEST: Chest is clear to auscultation and percussion. CARDIAC: Regular rate and rhythm with no murmur gallop or rubs. ABDOMEN: Soft, nondistended, nontender; no hepatosplenomegaly; bowel sounds are present in all four quadrants. EXTREMITIES: No clubbing, cyanosis, or edema. SKIN: Normal; no rash; no jaundice. 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 Available Data (labs, X- Rays, Procedues) : Last Impressions Abdomen/Pelvis CT 08/06/17 2100 Signed Impressions: Service Date/Time: Sunday, August 06, 2017 22:30 - CONCLUSION: 1. Rectal mass poorly evaluated due to the lack of oral and IV contrast. No dilatation to suggest obstruction. 2. Colonic diverticulosis. 3. Tiny low density lesions involving the kidneys which are poorly characterized. These may simply relate to cysts. 4. Large right inguinal hernia containing loops of small bowel. Lito Fierro Jr., MD Laboratory Tests Test 08/06/17 21:25 08/07/17 06:15 08/07/17 08:21 08/07/17 11:30 White Blood Count 6.4 TH/MM3 6.4 TH/MM3 Red Blood Count 4.25 MIL/MM3 3.58 MIL/MM3 Hemoglobin 11.9 GM/DL 9.6 GM/DL 8.7 GM/DL Hematocrit 36.0 % 30.4 % 27.1 % Mean Corpuscular Volume 84.7 FL 85.2 FL Mean Corpuscular Hemoglobin 28.0 PG 26.7 PG Mean Corpuscular Hemoglobin Concent 33.1 % 31.4 % Red Cell Distribution Width 13.7 % 13.5 % Platelet Count 315 TH/MM3 266 TH/MM3 Mean Platelet Volume 7.2 FL 6.7 FL Neutrophils (%) (Auto) 70.8 % 74.9 % Lymphocytes (%) (Auto) 18.9 % 17.1 % Monocytes (%) (Auto) 5.7 % 4.8 % Eosinophils (%) (Auto) 2.1 % 0.2 % Basophils (%) (Auto) 2.5 % 3.0 % Neutrophils # (Auto) 4.5 TH/MM3 4.8 TH/MM3 Lymphocytes # (Auto) 1.2 TH/MM3 1.1 TH/MM3 Monocytes # (Auto) 0.4 TH/MM3 0.3 TH/MM3 Eosinophils # (Auto) 0.1 TH/MM3 0.0 TH/MM3 Basophils # (Auto) 0.2 TH/MM3 0.2 TH/MM3 CBC Comment DIFF FINAL DIFF FINAL Differential Comment Prothrombin Time 11.2 SEC Prothromb Time International Ratio 1.1 RATIO Activated Partial Thromboplast Time 25.5 SEC Stool C. difficile Toxin (PCR) NEGATIVE Stl C. difficile Toxin Epiderm 027 PRESUMPTIVE NEGATIVE Blood Urea Nitrogen 24 MG/DL 28 MG/DL Creatinine 2.10 MG/DL 1.90 MG/DL Random Glucose 173 MG/DL 161 MG/DL Total Protein 7.1 GM/DL 6.0 GM/DL Albumin 2.4 GM/DL 2.1 GM/DL Calcium Level 8.7 MG/DL 7.8 MG/DL Alkaline Phosphatase 83 U/L 70 U/L Aspartate Amino Transf (AST/SGOT) 18 U/L 11 U/L Alanine Aminotransferase (ALT/SGPT) 20 U/L 15 U/L Total Bilirubin 0.3 MG/DL 0.3 MG/DL Sodium Level 142 MEQ/L 144 MEQ/L Potassium Level 4.0 MEQ/L 3.9 MEQ/L Chloride Level 106 MEQ/L 110 MEQ/L Carbon Dioxide Level 30.1 MEQ/L 26.9 MEQ/L Anion Gap 6 MEQ/L 7 MEQ/L Estimat Glomerular Filtration Rate 40 ML/MIN 44 ML/MIN Lipase 96 U/L Lactic Acid Level 1.1 mmol/L Test 08/07/17 18:10 08/08/17 00:01 08/08/17 07:03 Hemoglobin 8.8 GM/DL 8.2 GM/DL 8.8 GM/DL Hematocrit 27.5 % 23.8 % 26.1 % Urine Color YELLOW Urine Turbidity CLEAR Urine pH 5.5 Urine Specific O'Brien GREATER/EQUAL 1.030 Urine Protein 300 OR GREATER mg/dL Urine Glucose (UA) NEG mg/dL Urine Ketones NEG mg/dL Urine Occult Blood TRACE Urine Nitrite NEG Urine Bilirubin NEG Urine Urobilinogen 0.2 MG/DL Urine Leukocyte Esterase NEG Urine WBC 0-2 /hpf Urine Squamous Epithelial Cells 0-5 /hpf Urine Hyaline Casts 6-9 /lpf Urine Fine Granular Casts 0-2 /lpf Microscopic Urinalysis Comment CULT NOT INDICATED White Blood Count 4.8 TH/MM3 Red Blood Count 3.07 MIL/MM3 Mean Corpuscular Volume 84.9 FL Mean Corpuscular Hemoglobin 28.6 PG Mean Corpuscular Hemoglobin Concent 33.7 % Red Cell Distribution Width 14.0 % Platelet Count 237 TH/MM3 Mean Platelet Volume 7.2 FL Neutrophils (%) (Auto) 56.1 % Lymphocytes (%) (Auto) 30.5 % Monocytes (%) (Auto) 8.4 % Eosinophils (%) (Auto) 4.1 % Basophils (%) (Auto) 0.9 % Neutrophils # (Auto) 2.7 TH/MM3 Lymphocytes # (Auto) 1.5 TH/MM3 Monocytes # (Auto) 0.4 TH/MM3 Eosinophils # (Auto) 0.2 TH/MM3 Basophils # (Auto) 0.0 TH/MM3 CBC Comment DIFF FINAL Differential Comment Blood Urea Nitrogen 24 MG/DL Creatinine 1.40 MG/DL Random Glucose 140 MG/DL Calcium Level 8.0 MG/DL Magnesium Level 1.6 MG/DL Sodium Level 146 MEQ/L Potassium Level 3.9 MEQ/L Chloride Level 112 MEQ/L Carbon Dioxide Level 28.6 MEQ/L Anion Gap 5 MEQ/L Estimat Glomerular Filtration Rate 63 ML/MIN Allergies Coded Allergies Type Severity Reaction Last Updated Verified No Known Allergies Adverse Reaction Unknown 08/06/17 Yes Active Scripts Medications Dose Route/Sig Max Daily Dose Days Date Category Lantus Solostar Pen Inj (Insulin Glargine) 300 Unit/3 Ml Pen 30 Units SQ BID 08/07/17 Reported Losartan (Losartan Potassium) 50 Mg Tab 50 Mg PO DAILY 08/07/17 Reported Gabapentin 800 Mg Tab 800 Mg PO TID 08/07/17 Reported ASSESSMENT/PLAN: Seen and examined, doing prep for colonoscopy. It was a pleasure seeing David Allison. Thank you for this consult. Entered by: Eryn Muniz MD August 08, 2017 17:43
[2017-08-09] VITALS (8 sets, daily range): BP systolic 133–194; BP diastolic 85–118; PULSE 80–94; RESP 14–22; TEMP 96–98; O2SAT 96–99
[2017-08-09] MEDS: SODIUM CHLOR 0.9% 1000 ML INJ 1,000 ML IV SCH ×3 (00:30→23:00)
[2017-08-09 07:12] LABS: BASOPHIL % 0.6 % (0.0-2.0); EOSINOPHIL # 0.4 TH/MM3 (0-0.4); EOSINOPHIL % 6.3 % (0.0-4.0); HEMATOCRIT 26.1 % (39.0-51.0); HEMOGLOBIN 8.8 GM/DL (13.0-17.0); LYMPH % 31.2 % (9.0-44.0); LYMPHOCYTE # 1.8 TH/MM3 (1.0-4.8); MEAN CELL VOLUME 84.4 FL (80.0-100.0); MEAN CORPUSCULAR HEMOGLOBIN 28.5 PG (27.0-34.0); MEAN CORPUSCULAR HGB CONC 33.8 % (32.0-36.0); MONOCYTE # 0.4 TH/MM3 (0-0.9); NEUT % 54.9 % (16.0-70.0); PLATELET COUNT 272 TH/MM3 (150-450); RED BLOOD COUNT 3.09 MIL/MM3 (4.50-5.90); RED CELL DISTRIBUTION WIDTH 13.6 % (11.6-17.2); WHITE BLOOD COUNT 5.6 TH/MM3 (4.0-11.0)
[2017-08-09 07:26] LABS: BICARBONATE 30.2 MEQ/L (21.0-32.0); CALCIUM 7.9 MG/DL (8.5-10.1)
[2017-08-09 07:27] LABS: MAGNESIUM 1.6 MG/DL (1.5-2.5)
[2017-08-09 07:29] LABS: CREATININE 1.3 MG/DL (0.60-1.30)
--- NOTE | 2017-08-09 07:49 | HHI.PR ---
Subjective Remarks Patient seen and examined today for follow-up on GI bleed, possible rectal mass. Patient doing well. He completed the prep. States that there was some bloody stool in the beginning but at the end of the prep it did clear out. Hemoglobin remained stable. Vital signs are stable. Patient remains afebrile. Plans for endoscopy today Objective Vitals Vital Signs Date Time Temp Pulse Resp B/P (MAP) Pulse Ox O2 Delivery O2 Flow Rate FiO2 08/09/17 04:43 16 08/09/17 00:45 96.0 86 14 133/85 (101) 98 08/08/17 20:45 96.6 86 16 161/107 (125) 100 Manual Cuff/Auscultation 08/08/17 18:01 96.8 83 18 134/75 (94) 99 08/08/17 11:30 146/88 (107) 08/08/17 10:38 97.6 81 18 145/100 (115) 98 08/08/17 09:17 96.4 86 18 190/112 (138) 99 I/O 08/08/17 08/08/17 08/08/17 08/09/17 08/09/17 08/09/17 07:00 15:00 23:00 07:00 15:00 23:00 Intake Total 120 ml 900 ml 600 ml Balance 120 ml 900 ml 600 ml Intake Oral 120 ml IV Total 900 ml 600 ml # Voids 2 3 # Bowel Movements 10 Result Diagram: 08/09/17 0645 08/09/17 0645 Objective Remarks GENERAL: Well-developed, well-nourished, in no acute distress. alert and orientated HEENT: Head is normocephalic without any lesions or masses noted. Facial features are symmetric. Eyes: Extraocular muscles are intact. Conjunctivae were clear. NECK: Supple without any masses. Trachea midline no deviation. No JVD, CARDIAC: Regular rhythm, regular rate. S1/S2 are heard. No murmurs gallops or rubs. LUNGS: Clear to auscultation bilaterally. No wheeze, rhonchi or rales. No use of accessory muscles on inspiration or expiration. ABDOMEN: Soft, nontender. Nondistended. Bowel sounds heard in all 4 quadrants. No organomegaly or masses. Negative rebound, negative guarding EXTREMITIES: No edema, pulses are equal bilaterally. No cyanosis or clubbing NEUROLOGY: Mood and affect appear appropriate. Cranial nerves II through XII grossly intact. Moving all extremities, speech is clear Urinary Catheter: No Vascular Central Line Catheter: No A/P Assessment and Plan Lower GI bleed with bright red blood per rectum, rectal mass seen on CT, acute blood loss anemia -CT scan does show rectal mass that is poorly visualized due to lack of contrast -Upon review of records it appears patient has lost approximately 5 g of hemoglobin since 2014, continue to monitor hemoglobin hematocrit, transfuse if hemoglobin below 8.0 -Hemoglobin has remained stable during his stay in the hospital -Continue Protonix 40 mg IV daily -GI consulted for recommendations, -Planned for EGD, colonoscopy today -Depending on results patient may need colorectal surgery consultation whether outpatient versus inpatient, awaiting GI recommendations Nausea, vomiting, diarrhea -Continue IV fluids -Continue antiemetics -Clear liquid diet, advance per GI recommendations -Stool for C. difficile was negative -Stool studies do not indicate any enteric pathogen Acute renal failure with dehydration, continues to improve -Secondary to above -Continue IV fluids -Monitor renal function Diabetes -Accu-Cheks with sliding scale insulin -Start diabetic diet when patient is able to eat Hypertension -Cozaar 50 mg daily -Norvasc 5 mg daily -Clonidine as needed DVT prevention -Sequential compression devices, avoid chemical prophylaxis secondary to active GI bleed Discharge Planning Discharge planning after EGD/colonoscopy tomorrow when cleared by GI. Elliot Ortez August 09, 2017 07:49
[2017-08-09] MEDS: INSULIN ASPART SUPPLEMENTAL SCALE SQ SCH ×4 (08:00→22:54)
[2017-08-09] MEDS: GABAPENTIN 400 MG CAP PO SCH ×3 (08:31→17:36)
[2017-08-09] MEDS: amLODIPine BESYLATE 5 MG TAB PO SCH (08:31)
[2017-08-09] MEDS: LOSARTAN 50 MG TAB PO SCH (08:31)
[2017-08-09] MEDS: DOCUSATE SODIUM 50 MG/SENNA 8.6 MG TAB PO SCH ×2 (08:32→22:58)
[2017-08-09] MEDS: PANTOPRAZOLE SODIUM 40 MG VIAL IV PUSH SCH (08:33)
[2017-08-09] MEDS: SODIUM CHLORIDE 0.9% FLUSH 10 ML FLUSH IV FLUSH SCH ×2 (08:33→21:00)
[2017-08-09] MEDS: cloNIDine HCL 0.1 MG TAB PO PRN ×2 (12:17→17:54)
--- NOTE | 2017-08-09 16:20 | GIPROC ---
[facility] [address] [place] [address], [id number] EGD PROCEDURE REPORT EXAM DATE: 08/09/2017 PATIENT NAME: David Allison MR #: [id number] BIRTHDATE: 1960 ATTENDING: Eryn May MD ORDER #: [id number] MAINTENANCE MANAGER: Anastacio Sparrow STATUS: inpatient INDICATIONS: The patient is a 57 yr old male here for an EGD due to iron deficiency anemia PROCEDURE PERFORMED: EGD w/ biopsy MEDICATIONS: None and Per Anesthesia. TOPICAL ANESTHETIC: CONSENT: The patient understands the risks and benefits of the procedure and understands that these risks include, but are not limited to: sedation, allergic reaction, infection, perforation and/or bleeding. Alternative means of evaluation and treatment include, among others: physical exam, x-rays, and/or surgical intervention. The patient elects to proceed with this endoscopic procedure. medical equipment was checked for proper function. Hand hygiene and appropriate measures for infection prevention was taken. After the risks, benefits and alternatives of the procedure were thoroughly explained, Informed consent was verified, confirmed and timeout was successfully executed by the treatment team. The patient was anesthetized with topical anesthesia and the [id number] (Pedi C) endoscope was introduced through the mouth and advanced to the second portion of the duodenum. Retroflexed views revealed no abnormalities The gastroscope was then slowly withdrawn and removed. ESOPHAGUS: There was [place] Class A esophagitis noted. A biopsy was performed using cold forceps. Sample sent for histology. STOMACH: There was erythematous moderate gastritis in the gastric antrum. A biopsy was performed using cold forceps. Sample sent for histology. DUODENUM: The duodenal mucosa appeared normal in the bulb and second portion of the duodenum. ADVERSE EVENTS: There were no complications. IMPRESSIONS: 1. There was LA Class A esophagitis noted; biopsy was performed 2. There was erythematous gastritis in the gastric antrum; biopsy was performed 3. Normal duodenal mucosa in the bulb and second portion of the duodenum 4. Retroflexed views revealed no abnormalities RECOMMENDATIONS: 1. Await biopsy results. Biopsy results will not be ready for 7-10 days. If you don't hear from us in two weeks, call our office for biopsy results. 2. Anti-reflux regimen 3. Continue PPI 4. Avoid NSAIDS PATIENT CONDITION: stable DISPOSITION: Inpatient REPEAT EXAM: Return 3 years EGD pending biopsy results Eryn May MD eSigned: Eryn May MD 08/09/2017 4:20 PM cc: PATIENT NAME: David Allison MR#: [id number]
--- NOTE | 2017-08-09 16:23 | GIPROC ---
[facility] [address] [place] [address], [id number] COLONOSCOPY PROCEDURE REPORT EXAM DATE: 08/09/2017 PATIENT NAME: David Allison MR #: [id number] BIRTHDATE: 1960 ENDOSCOPIST: Eryn May MD ORDER #: [id number] SETTER MACHINE: Anastacio Sparrow STATUS: inpatient INDICATIONS: The patient is a 57 yr old male here for a colonoscopy due to hematochezia PROCEDURE PERFORMED: Colonoscopy with biopsy MEDICATIONS: None and Per Anesthesia. PREP QUALITY: The [place] Bowel Prep Score was Right colon 1, Mid colon 2, and Left colon 2. Total = 5. PREP TYPE:GoLytely ESTIMATED BLOOD LOSS: None CONSENT: The patient understands the risks and benefits of the procedure and understands that these risks include, but are not limited to: sedation, allergic reaction, infection, perforation and/or bleeding. Alternative means of evaluation and treatment include, among others: physical exam, x-rays, and/or surgical intervention. The patient elects to proceed with this endoscopic procedure. medical equipment was checked for proper function. Hand hygiene and appropriate measures for infection prevention was taken. After the risks, benefits and alternatives of the procedure were thoroughly explained, Informed consent was verified, confirmed and timeout was successfully executed by the treatment team. A digital exam revealed external hemorrhoids The Pentax [id number] endoscope was introduced through the anus and advanced to the cecum, which was identified by both the appendix and ileocecal valve. The instrument was then slowly withdrawn as the colon was fully examined. COLON FINDINGS: There was moderate diverticulosis noted in the sigmoid colon. No bleeding was noted from the diverticulosis. Biopsy. A polypoid shaped sessile polyp ranging between 3-7mm in size was found in the sigmoid colon. A biopsy was performed using cold forceps. Retroflexed views revealed internal hemorrhoids and Retroflexed views revealed small internal hemorrhoids The scope was then completely withdrawn from the patient and the procedure terminated. PROCEDURE WITHDRAWAL TIME:7minutes ADVERSE EVENTS: There were no complications. IMPRESSIONS: 1. There was moderate diverticulosis noted in the sigmoid colon 2. Biopsy 3. A sessile polyp ranging between 3-7mm in size was found in the sigmoid colon; biopsy was performed using cold forceps 4. Retroflexed views revealed internal hemorrhoids 5. Retroflexed views revealed small internal hemorrhoids 6. Revealed external hemorrhoids RECOMMENDATIONS: 1. Await biopsy results. Biopsy results will not be ready for 7-10 days. If you don't hear from us in two weeks, call our office for results. 2. Benefiber 2 tsp daily 3. Continue surveillance 4. Yearly hemoccult RECALL: Return 3 months Colonoscopy Eryn May MD eSigned: Eryn May MD 08/09/2017 4:22 PM cc: PATIENT NAME: David Allison MR#: [id number]
[2017-08-09] MEDS ORDERED: DIATRIZOATE MEGLUM/DIATRIZOATE SOD 9 ML CUP PO ONE (17:30)
[2017-08-09] MEDS ORDERED: IOHEXOL 350 MG/ML 10 ML VIAL (for RAD DIAG) IVCONTRAST ONE (19:55)
--- NOTE | 2017-08-09 21:40 | RADRPT ---
EXAM DATE/TIME: 08/09/2017 19:44 [place] COMPARISON: No previous studies available for comparison. INDICATIONS : Evaluate for rectal mass. IV CONTRAST: 100 cc Omnipaque 350 (iohexol) IV ORAL CONTRAST: Prescribed oral contrast ingested. RADIATION DOSE: 16.58 CTDIvol (mGy) MEDICAL HISTORY : Hypertension. Diabetes mellitus type 2. Hernia, inguinal. SURGICAL HISTORY : None. ENCOUNTER: Subsequent ACUITY: 4 - 6 days PAIN SCALE: 5/10 LOCATION: Bilateral lower quadrant TECHNIQUE: Volumetric scanning of the abdomen and pelvis was performed. Using automated exposure control and ad justment of the mA and/or kV according to patient size, radiation dose was kept as low as reasonably achievable to obtain optimal diagnostic quality images. DICOM format image data is available electro nically for review and comparison. FINDINGS: LOWER LUNGS: The visualized lower lungs are clear. LIVER: Homogeneous density without lesion. There is no dilation of the biliary tree. No calcified gallston es. SPLEEN: Normal size without lesion. PANCREAS: Within normal limits. KIDNEYS: Small bilateral renal cysts. No suspicious mass, stone or hydronephrosis. ADRENAL GLANDS: Within normal limits. VASCULAR: There is no aortic aneurysm. BOWEL/MESENTERY: Bowel structures are nondilated throughout aerated no focal abnormal wall thickening or inflammatory change. No discrete suspicious findings associated with the rectum. Multiple small bowel loops in a l arge right inguinal hernia. ABDOMINAL WALL: Within normal limits. RETROPERITONEUM: There is no lymphadenopathy. BLADDER: No wall thickening or mass. REPRODUCTIVE: Within normal limits. INGUINAL: Large right inguinal hernia containing multiple loops of small bowel. No definite evidence of incarce ration or obstruction MUSCULOSKELETAL: Prominent thoracolumbar scoliosis with degenerative changes. No acute bony findings CONCLUSION: Large bowel containing right inguinal hernia. No other acute CT findings in the abdomen or pelvis. Umang Narayanan MD on August 09, 2017 at 21:34 Board Certified Radiologist. This report was verified electronically.
[2017-08-09] MEDS ORDERED: cloNIDine HCL 0.2 MG TAB PO ONE (22:45)
[2017-08-10 00:08] VITALS: BP 131/95; PULSE 86; RESP 20; TEMP 97.1; O2SAT 99
[2017-08-10] MEDS: SODIUM CHLOR 0.9% 1000 ML INJ 1,000 ML IV SCH (05:47)
[2017-08-10 08:00] VITALS: BP 144/92; PULSE 90; RESP 20; TEMP 96.9; O2SAT 99
[2017-08-10] MEDS: INSULIN ASPART SUPPLEMENTAL SCALE SQ SCH (08:00)
[2017-08-10] MEDS: SODIUM CHLORIDE 0.9% FLUSH 10 ML FLUSH IV FLUSH SCH (09:00)
[2017-08-10] MEDS: PANTOPRAZOLE SODIUM 40 MG VIAL IV PUSH SCH (09:24)
[2017-08-10] MEDS: LOSARTAN 50 MG TAB PO SCH (09:24)
[2017-08-10] MEDS: DOCUSATE SODIUM 50 MG/SENNA 8.6 MG TAB PO SCH (09:24)
[2017-08-10] MEDS: GABAPENTIN 400 MG CAP PO SCH (09:24)
[2017-08-10] MEDS: amLODIPine BESYLATE 5 MG TAB PO SCH (09:24)
--- NOTE | 2017-08-10 09:34 | EKG ---
Date Performed: 08/09/2017 Time Performed: 08:50:56 PTAGE: 57 years EKG: Sinus rhythm NORMAL ECG NO PREVIOUS TRACING DOCTOR: Apolonia Major Interpretating Date/Time 08/10/2017 09:33:50
--- NOTE | 2017-08-10 10:31 | HHI.PR ---
Objective Vitals Vital Signs Date Time Temp Pulse Resp B/P (MAP) Pulse Ox O2 Delivery O2 Flow Rate FiO2 08/10/17 08:00 96.9 90 20 144/92 (109) 99 08/10/17 00:08 97.1 86 20 131/95 (107) 99 08/09/17 20:14 97.9 94 20 170/100 (123) 98 08/09/17 17:25 96.0 84 22 194/116 (142) 98 08/09/17 16:52 84 18 170/111 (130) 99 08/09/17 16:40 80 18 157/98 (117) 99 08/09/17 16:25 97.9 76 18 122/70 (87) 100 08/09/17 14:36 98.0 86 20 180/118 (138) 96 08/09/17 13:45 156/90 (112) 08/09/17 12:00 96.6 85 20 190/100 (130) 99 I/O 08/09/17 08/09/17 08/09/17 08/10/17 08/10/17 08/10/17 06:59 14:59 22:59 06:59 14:59 22:59 Intake Total 600 ml 400 ml 300 ml 922 ml 120 ml Balance 600 ml 400 ml 300 ml 922 ml 120 ml Intake Oral 120 ml IV Total 600 ml 400 ml 922 ml Other 300 ml # Voids 3 3 2 # Bowel Movements 10 2 Result Diagram: 08/09/17 0645 08/09/17 0645 A/P Problem List: (1) Intractable nausea and vomiting ICD Code: R11.2 - Nausea with vomiting, unspecified (2) Abdominal pain ICD Code: R10.9 - Unspecified abdominal pain (3) Lower GI bleed ICD Code: K92.2 - Gastrointestinal hemorrhage, unspecified (4) Acute blood loss anemia ICD Code: D62 - Acute posthemorrhagic anemia (5) Rectal mass ICD Code: K62.9 - Disease of anus and rectum, unspecified (6) Acute renal failure ICD Code: N17.9 - Acute kidney failure, unspecified (7) Dehydration ICD Code: E86.0 - Dehydration Mayte Cline August 10, 2017 10:31
[2017-08-10] MEDS ORDERED: AMLO5 PO (11:10)
[2017-08-10] MEDS ORDERED: PROT40TA PO (11:10)
[2017-08-10] MEDS ORDERED: PERI PO (11:11)
--- NOTE | 2017-08-10 11:12 | HHI.DCPOC ---
Discharge Care Plan Diagnosis: (1) DM (diabetes mellitus), secondary uncontrolled (2) Intractable nausea and vomiting (3) HTN (hypertension) (4) Lower GI bleed Goals to Promote Your Health * To prevent worsening of your condition and complications * To maintain your health at the optimal level Directions to Meet Your Goals Take your medications as prescribed Follow your dietary instruction Follow activity as directed Keep your appointments as scheduled Take your immunizations and boosters as scheduled If your symptoms worsen call your PCP, if no PCP go to Urgent Care Center or Emergency Room Smoking is Dangerous to Your Health. Avoid second hand smoke Call the 24-hour hour crisis hotline for domestic abuse at Mayte Cline August 10, 2017 11:12
--- NOTE | 2017-08-10 11:13 | HHI.DS ---
Discharge Summary Admission Date August 06, 2017 at 23:18 Discharge Date: August 12, 2017 Admitting Diagnosis GI BLEED, POSSIBLE RECTAL MASS (1) Intractable nausea and vomiting ICD Code: R11.2 - Nausea with vomiting, unspecified Diagnosis: Principal (2) Abdominal pain ICD Code: R10.9 - Unspecified abdominal pain Diagnosis: Principal (3) Lower GI bleed ICD Code: K92.2 - Gastrointestinal hemorrhage, unspecified Diagnosis: Principal (4) Acute blood loss anemia ICD Code: D62 - Acute posthemorrhagic anemia Diagnosis: Principal (5) Rectal mass ICD Code: K62.9 - Disease of anus and rectum, unspecified Diagnosis: Principal (6) Acute renal failure ICD Code: N17.9 - Acute kidney failure, unspecified Diagnosis: Principal (7) Dehydration ICD Code: E86.0 - Dehydration Diagnosis: Principal Procedures See below. Brief History - From Admission 57-year-old male with known history of hypertension, diabetes who presented the hospital because of bloody stool. Patient indicates over the last 2 weeks he has had intractable nausea, vomiting not able to eat or drink much. He states that yesterday when he had a bowel movement was bloody diarrhea, he states he never had this before so he came to emergency department because of that symptom. Patient did have workup which did indicate significant dehydration, acute renal failure, acute blood loss anemia from reviewing previous records. Patient is still with intractable nausea vomiting which he has been given IV medication for control. Patient states that he has been experiencing lower abdominal pain without any radiation. CT scan was performed which did indicate some small bowel loops in a large inguinal hernia. As well as rectal mass that was poorly evaluated because of lack of contrast. Currently the patient is lying in bed with mild pain. He is still having nausea and vomiting. Upon reviewing medical records patient has lost 5 g hemoglobin since 2013. Patient be admitted with GI consultation. CBC/BMP: 08/09/17 0645 08/09/17 0645 Significant Findings Laboratory Tests Test 08/07/17 11:30 08/07/17 18:10 08/08/17 00:01 08/08/17 07:03 Hemoglobin 8.7 GM/DL (13.0-17.0) 8.8 GM/DL (13.0-17.0) 8.2 GM/DL (13.0-17.0) 8.8 GM/DL (13.0-17.0) Hematocrit 27.1 % (39.0-51.0) 27.5 % (39.0-51.0) 23.8 % (39.0-51.0) 26.1 % (39.0-51.0) Urine Protein 300 OR GREATER mg/dL Urine Hyaline Casts 6-9 /lpf (RARE) Red Blood Count 3.07 MIL/MM3 (4.50-5.90) Monocytes (%) (Auto) 8.4 % (0.0-8.0) Eosinophils (%) (Auto) 4.1 % (0.0-4.0) Blood Urea Nitrogen 24 MG/DL (7-18) Creatinine 1.40 MG/DL (0.60-1.30) Random Glucose 140 MG/DL (74-106) Calcium Level 8.0 MG/DL (8.5-10.1) Sodium Level 146 MEQ/L (136-145) Chloride Level 112 MEQ/L (98-107) Estimat Glomerular Filtration Rate 63 ML/MIN (>89) Test 08/09/17 06:45 Red Blood Count 3.09 MIL/MM3 (4.50-5.90) Hemoglobin 8.8 GM/DL (13.0-17.0) Hematocrit 26.1 % (39.0-51.0) Eosinophils (%) (Auto) 6.3 % (0.0-4.0) Random Glucose 154 MG/DL (74-106) Calcium Level 7.9 MG/DL (8.5-10.1) Chloride Level 111 MEQ/L (98-107) Anion Gap 4 MEQ/L (5-15) Estimat Glomerular Filtration Rate 69 ML/MIN (>89) Imaging Last Impressions Abdomen/Pelvis CT 08/09/17 0000 Signed Impressions: Service Date/Time: Wednesday, August 09, 2017 19:44 - CONCLUSION: Large bowel containing right inguinal hernia. No other acute CT findings in the abdomen or pelvis. Umang Narayanan MD PE at Discharge GENERAL: Well-developed, well-nourished, in no acute distress. alert and orientated HEENT: Head is normocephalic without any lesions or masses noted. Facial features are symmetric. Eyes: Extraocular muscles are intact. Conjunctivae were clear. NECK: Supple without any masses. Trachea midline no deviation. No JVD, CARDIAC: Regular rhythm, regular rate. S1/S2 are heard. No murmurs gallops or rubs. LUNGS: Clear to auscultation bilaterally. No wheeze, rhonchi or rales. No use of accessory muscles on inspiration or expiration. ABDOMEN: Soft, nontender. Nondistended. Bowel sounds heard in all 4 quadrants. No organomegaly or masses. Negative rebound, negative guarding EXTREMITIES: No edema, pulses are equal bilaterally. No cyanosis or clubbing NEUROLOGY: Mood and affect appear appropriate. Cranial nerves II through XII grossly intact. Moving all extremities, speech is clear Pt update on day of discharge Patient seen and examined for GI bleed. Patient sitting on side of bed in no apparent distress. Doing well. No acute complaints. Pain controlled. at bedside and updated. No reports of any acute events overnight. Will discharge home. All symptoms have resolved. Hospital Course Lower GI bleed with bright red blood per rectum, rectal mass seen on CT, acute blood loss anemia. CT scan does show rectal mass that is poorly visualized due to lack of contrast initially. We did repeat the CT showing large bowel containing right inguinal hernia. There was no mass on the repeat imaging. Upon review of records it appears patient has lost approximately 5 g of hemoglobin since 2014. Hemoglobin has remained stable during his stay in the hospital. Patient was started on Protonix 40 mg IV daily. GI consulted for recommendations, underwent EGD and colonoscopy. Patient with nausea, vomiting, and diarrhea was given IV fluids and antiemetics. Diet was advanced and patient eventually improved. Stool for C. difficile was negative. Stool studies did not indicate any enteric pathogen. Patient was found to be in acute renal failure due to dehydration. Improved upon discharge. Encouraged follow-up PCP. From resolution. Patient does have diabetes, this was controlled within the hospitalization time. Patient did see a visual educator. Patient is highly motivated for lifestyle change in diet and exercise changes. Sent home on same insulin regimen. Follow-up PCP for management diabetes outpatient. Patient has chronic hypertension, was restarted on Cozaar Norvasc and clonidine as needed during hospitalization. Patient improved fully upon discharge, denied any further symptoms. And will follow up with gastroenterology and PCP. Pt Condition on Discharge: Stable Discharge Disposition: Discharge Home Discharge Time: > 30 minutes Discharge Instructions DIET: Follow Instructions for: As Tolerated, No Restrictions, Heart Healthy Diet Speech Therapy-Diet Recommends: Regular Activities you can perform: Regular-No Restrictions Follow up Referrals: Diabetic Education - 1 Week Gastroenterology - 1 Week with Eryn May MD PCP Follow-up - 1 Week New Medications: Pantoprazole (Protonix) 40 Mg Tab 40 MG PO DAILY for Reflux for 14 Days, #14 TAB 0 Refills Amlodipine (Norvasc) 5 Mg Tab 5 MG PO DAILY for htn for 30 Days, #30 TAB Sennosides-Docusate Sodium (Gnp Senna Plus 8.6-50 mg) 8.6 Mg-50 Mg Tab 1 TAB PO BID for constipation for 30 Days, #60 TAB Continued Medications: Gabapentin (Gabapentin) 800 Mg Tab 800 MG PO TID, #90 TAB 0 Refills Insulin Glargine Inj (Lantus Solostar Pen Inj) 300 Unit/3 Ml Pen 30 UNITS SQ BID for Blood Sugar Management, PEN 0 Refills Losartan (Losartan) 50 Mg Tab 50 MG PO DAILY for Blood Pressure Management, #30 TAB 0 Refills Mayte Cline August 10, 2017 11:13
== END 2017-08-10 12:25 | disposition home or self-care (01) | DRG 378 ==
LOC: PHED 20:31 → PHEDA 23:17 → OBSVTOIN 23:18 → PHEDH 08-07 02:16 → PH3A 08-07 07:50
PROVIDERS: ADMIT Hospitalist; ATTEND Hospitalist
PROC: 0DB78ZX Excision of Stomach, Pylorus, Via Natural or Artificial Opening Endoscopic, Diagnostic (ICD-10-PCS; 2017-08-09)
PROC: 0DBN8ZX Excision of Sigmoid Colon, Via Natural or Artificial Opening Endoscopic, Diagnostic (ICD-10-PCS; principal; 2017-08-09 15:47)
PROC: 0DB58ZX Excision of Esophagus, Via Natural or Artificial Opening Endoscopic, Diagnostic (ICD-10-PCS; 2017-08-09 15:47)
DX: K57.31 Diverticulosis of large intestine without perforation or abscess with bleeding (principal); N17.9 Acute kidney failure, unspecified; E11.22 Type 2 diabetes mellitus with diabetic chronic kidney disease; D62 Acute posthemorrhagic anemia; E86.0 Dehydration; K29.71 Gastritis, unspecified, with bleeding; I12.9 Hypertensive chronic kidney disease with stage 1 through stage 4 chronic kidney disease, or unspecified chronic kidney disease; N18.9 Chronic kidney disease, unspecified; K40.90 Unilateral inguinal hernia, without obstruction or gangrene, not specified as recurrent; R63.4 Abnormal weight loss; R63.0 Anorexia; K63.5 Polyp of colon; K64.8 Other hemorrhoids; K64.4 Residual hemorrhoidal skin tags; K20.9 Esophagitis, unspecified; Z68.26 Body mass index [BMI] 26.0-26.9, adult; Z79.4 Long term (current) use of insulin; Z83.3 Family history of diabetes mellitus
CPT/HCPCS: 74176; 74177; 80048; 80053; 81001; 82948; 83605; 83690; 83735; 85014; 85018; 85025; 85610; 85730; 86850; 86900; 86901; 87205; 87328; 87329; 87493; 87506; 88305; 93005; 96360; 96372; C9113; J1815; J2550; J2765; J7030; Q9963; Q9967